=== PATIENT | male | born 1950 | race Caucasian/White ===

== ENCOUNTER 2017-01-22 11:09 | Outpatient (CLI) | payer OTHER ==
[2015-04-29 17:24] VITALS: O2SAT 95
== END 2017-01-22 11:10 | disposition home or self-care (01) | DRG 554 ==
LOC: CONVCARE 11:09
PROVIDERS: ATTEND Orthopaedic Surgery
DX: M17.11 Unilateral primary osteoarthritis, right knee (principal)
CPT/HCPCS: 73560

== ENCOUNTER 2017-02-06 13:03 | Day surgery (SDC) | payer MEDICARE, OTHER ==
[2017-02-06] MEDS ORDERED: TRIAMCINOLONE ACETONIDE 40 MG/ML SUS ONE (13:53)
[2017-02-06 14:21] VITALS: BP 110/73; PULSE 92; RESP 18; TEMP 97.3; O2SAT 94
== END 2017-02-06 14:42 | disposition home or self-care (01) | DRG 552 ==
LOC: SURG 13:03
PROVIDERS: ATTEND Nurse Anesthetist, Certified Registered
DX: M54.5 Low back pain (principal); M99.83 Other biomechanical lesions of lumbar region
CPT/HCPCS: J3300

== ENCOUNTER 2017-05-27 14:29 | Emergency (ER) | payer OTHER ==
[2017-05-27 14:58] VITALS: RESP 20; TEMP 97.9
[2017-05-27 15:00] LABS: BASOPHILS % (AUTO) 1 % (0-3); EOSINOPHILS % (AUTO) 2 % (0-9); HEMATOCRIT 38 % (39-53); MEAN CORPUSCULAR HGB CONC 34.6 gm/dl (32.0-36.0); MEAN CORPUSCULAR VOLUME 90 fL (80-100); MONOCYTES % (AUTO) 6.7 % (0-12); NEUTROPHILS % (AUTO) 62.5 % (37-80)
[2017-05-27 15:25] LABS: APPEARANCE,URINE Slightly Cloudy; BILIRUBIN,URINE NEGATIVE (NEGATIVE); COLOR,URINE Yellow; GLUCOSE, URINE (UA) TRACE (NEGATIVE); KETONES,URINE NEGATIVE (NEGATIVE); LEUKOCYTE ESTERASE ,URINE NEGATIVE (NEGATIVE); NITRATE,URINE NEGATIVE (NEGATIVE); OCCULT BLOOD,URINE NEGATIVE (NEG-TRACE); PH,URINE 6.5; UROBILINOGEN,URINE 0.2 (0.2-1.0 EU)
[2017-05-27 15:28] LABS: ALBUMIN 3.4 gm/dl (3.4-5.0); CALCIUM 8.5 mg/dl (8.5-10.1); POTASSIUM 4.1 mMol/L (3.5-5.1)
[2017-05-27 15:37] LABS: RBC,URINE 0-1 (0-3AV/HPF); WBC,URINE 0-1 (0-5AV/HPF)
[2017-05-27 15:53] VITALS: O2SAT 93
[2017-05-27 15:55] VITALS: BP 121/66; PULSE 94
== END 2017-05-27 15:50 | disposition home or self-care (01) | DRG 948 ==
LOC: ED 14:29
DX: R53.83 Other fatigue (principal); Z75.8 Other problems related to medical facilities and other health care
CPT/HCPCS: 36415; 80053; 81001; 85025; 99282; 99283

== ENCOUNTER 2017-07-09 09:45 | Day surgery (SDC) | payer OTHER ==
[2017-07-09] MEDS ORDERED: METOCLOPRAMIDE HYDROCHLORIDE 5 MG/ML SOL ONE (11:19)
[2017-07-09] MEDS ORDERED: ONDANSETRON HCL 4 MG/2 ML SOL ONE (11:25)
[2017-07-09] MEDS ORDERED: FENTANYL 100MCG/2ML SOL ONE ×2 (11:25→12:28)
[2017-07-09] MEDS ORDERED: PROPOFOL 10 MG/ML EMU IV ONE ×2 (11:25→12:08)
[2017-07-09] MEDS ORDERED: CEFAZOLIN SODIUM 1 GM PDS ONE (11:33)
[2017-07-09] MEDS ORDERED: SUCCINYLCHOLINE CHLORIDE 20 MG/ML SOL IV ONE (11:33)
[2017-07-09] MEDS ORDERED: MIDAZOLAM 2 MG/2 ML SOL ONE (11:33)
[2017-07-09] MEDS ORDERED: KETOROLAC TROMETHAMINE 30 MG/ML SOL ONE (13:11)
[2017-07-09 13:50] VITALS: TEMP 97.6
[2017-07-09 14:02] VITALS: O2SAT 92
[2017-07-09 14:42] VITALS: BP 116/71; PULSE 102; RESP 20
== END 2017-07-09 15:10 | disposition home or self-care (01) | DRG 563 ==
LOC: SURG 09:45
PROVIDERS: ATTEND Orthopaedic Surgery
DX: S83.241A Other tear of medial meniscus, current injury, right knee, initial encounter (principal); M94.261 Chondromalacia, right knee; S83.281A Other tear of lateral meniscus, current injury, right knee, initial encounter
CPT/HCPCS: 29880; G0289; J0330; J0690; J1885; J2250; J2405; J2765; J3010; J2001; J2704

== ENCOUNTER 2017-10-26 17:32 | Emergency (ER) | payer OTHER ==
[2017-10-26 17:55] VITALS: PULSE 94; RESP 16; TEMP 97.6
[2017-10-26 18:53] VITALS: BP 136/88; O2SAT 92
== END 2017-10-26 18:33 | disposition home or self-care (01) | DRG 151 ==
LOC: ED 17:32
DX: R04.0 Epistaxis (principal)
CPT/HCPCS: 99282

== ENCOUNTER 2018-05-29 17:48 | Emergency (ER) | payer OTHER ==
[2018-05-29 18:40] VITALS: TEMP 98.1
[2018-05-29 18:40] LABS: BASOPHILS % (AUTO) 0 % (0-3); EOSINOPHILS % (AUTO) 1 % (0-9); HEMATOCRIT 40 % (39-53); LYMPHOCYTES % (AUTO) 13.5 % (10-50); MEAN CORPUSCULAR HEMOGLOBIN 30.4 pg (27.0-32.0); MEAN CORPUSCULAR HGB CONC 32.4 gm/dl (32.0-36.0); MEAN CORPUSCULAR VOLUME 94 fL (80-100); MONOCYTES % (AUTO) 6.5 % (0-12)
[2018-05-29 18:41] LABS: LACTIC ACID 1.1 mMol/L (0.0-2.0)
[2018-05-29 18:56] LABS: ALBUMIN 3.6 gm/dl (3.4-5.0); ALKALINE PHOSPHATASE 63 IU/L (46-116); ALT 23 IU/L (14-63); AST 13 IU/L (15-37); BILIRUBIN,TOTAL 0.5 mg/dl (0.2-1.0); BLOOD UREA NITROGEN 17 mg/dl (7-18); CALCIUM 8.7 mg/dl (8.5-10.1); CARBON DIOXIDE 26.5 mEq/L (21-32); CHLORIDE 104 mMol/L (98-107); CREATININE 1.06 mg/dl (0.80-1.30); GLUCOSE 118 mg/dl (74-106); POTASSIUM 3.5 mMol/L (3.5-5.1); SODIUM 141 mMol/L (136-145); TOTAL PROTEIN 6.6 gm/dl (6.4-8.2); TROP I < 0.017 ng/ml (0.000-0.056)
[2018-05-29] MEDS ORDERED: POLYETHYLENE GLYCOL 17 GM/1 TBS PDS PO ONE (20:02)
[2018-05-29] MEDS ORDERED: POLYETHYLENE GLYCOL 17 GM/1 TBS PDS ONE (20:04)
[2018-05-29 21:00] VITALS: BP 144/98; PULSE 73; RESP 13; O2SAT 96
== END 2018-05-29 20:35 | disposition home or self-care (01) | DRG 392 ==
LOC: SUPCPDRO 17:48 → ED 17:48
DX: K59.00 Constipation, unspecified (principal)
CPT/HCPCS: 36415; 71045; 74018; 80053; 84484; 85025; 93005; 99283; 99285; A9270-GY

== ENCOUNTER 2018-07-27 12:39 | Emergency (ER) | payer MEDICARE, OTHER ==
[2018-07-27 13:19] VITALS: TEMP 97.9
[2018-07-27] MEDS ORDERED: SODIUM CHLORIDE 0.9% 1000ML 1,000 ML IV SCH (13:45)
[2018-07-27 13:52] LABS: BASOPHILS % (AUTO) 1 % (0-3); EOSINOPHILS % (AUTO) 2 % (0-9); HEMATOCRIT 38 % (39-53); HEMOGLOBIN 12.9 gm/dl (13.5-17.7); LYMPHOCYTES % (AUTO) 20.6 % (10-50); MEAN CORPUSCULAR HEMOGLOBIN 30.8 pg (27.0-32.0); MEAN CORPUSCULAR HGB CONC 33.4 gm/dl (32.0-36.0); MEAN CORPUSCULAR VOLUME 92 fL (80-100); MONOCYTES % (AUTO) 6.5 % (0-12); NEUTROPHILS % (AUTO) 70.3 % (37-80)
[2018-07-27 14:05] LABS: INR 0.96 (0.86-1.12)
[2018-07-27 14:19] LABS: ALBUMIN 3.1 gm/dl (3.4-5.0); ALKALINE PHOSPHATASE 76 IU/L (46-116); ALT 18 IU/L (14-63); AST 11 IU/L (15-37); BILIRUBIN,TOTAL 0.4 mg/dl (0.2-1.0); BLOOD UREA NITROGEN 15 mg/dl (7-18); CALCIUM 7.9 mg/dl (8.5-10.1); CARBON DIOXIDE 30.2 mEq/L (21-32); CHLORIDE 102 mMol/L (98-107); CREATINE KINASE 51 U/L (39-308); GLUCOSE 109 mg/dl (74-106); POTASSIUM 3.5 mMol/L (3.5-5.1); SODIUM 142 mMol/L (136-145); THYROID STIMULATING HORMONE 1.933 uIU/ml (0.358-3.740); TOTAL PROTEIN 6.2 gm/dl (6.4-8.2); TROP I < 0.017 ng/ml (0.000-0.056)
[2018-07-27] MEDS ORDERED: ACETAMINOPHEN 500 MG 500 MG TAB PO ONE (15:35)
[2018-07-27] MEDS ORDERED: ACETAMINOPHEN 500 MG 500 MG TAB ONE (15:37)
[2018-07-27 16:20] LABS: APPEARANCE,URINE Clear; BILIRUBIN,URINE NEGATIVE (NEGATIVE); COLOR,URINE Yellow; GLUCOSE, URINE (UA) NEGATIVE (NEGATIVE); KETONES,URINE NEGATIVE (NEGATIVE); LEUKOCYTE ESTERASE ,URINE NEGATIVE (NEGATIVE); NITRATE,URINE NEGATIVE (NEGATIVE); OCCULT BLOOD,URINE NEGATIVE (NEG-TRACE)
[2018-07-27 16:21] VITALS: RESP 20
[2018-07-27 16:52] LABS: RBC,URINE 0-1 (0-3AV/HPF)
[2018-07-27 16:53] LABS: BACTERIA TRACE (< 1+); CRYSTALS NEGATIVE (0-3 AVE/HPF); EPITHELIAL CELLS 0-2 (SQUAMOUS)
[2018-07-27 17:26] VITALS: BP 162/70; PULSE 82; O2SAT 96
== END 2018-07-27 17:20 | disposition home or self-care (01) | DRG 149 ==
LOC: ED 12:39
DX: R42 Dizziness and giddiness (principal); S30.0XXA Contusion of lower back and pelvis, initial encounter; W19.XXXA Unspecified fall, initial encounter; I10 Essential (primary) hypertension; Z98.890 Other specified postprocedural states
CPT/HCPCS: 70450; 71046; 72220; 80053; 81001; 82550; 84443; 84484; 85025; 85610; 93005; 96365; 96366; 99284; 99285

== ENCOUNTER 2018-10-01 20:42 | Emergency (ER) | payer OTHER ==
[2018-10-01 20:57] VITALS: RESP 20; TEMP 96.2
[2018-10-01 21:30] LABS: BASOPHILS % (AUTO) 1 % (0-3); EOSINOPHILS % (AUTO) 1 % (0-9); HEMATOCRIT 33 % (39-53); HEMOGLOBIN 11.1 gm/dl (13.5-17.7); LYMPHOCYTES % (AUTO) 14.7 % (10-50); MEAN CORPUSCULAR HEMOGLOBIN 29.9 pg (27.0-32.0); MEAN CORPUSCULAR HGB CONC 33.2 gm/dl (32.0-36.0); MEAN CORPUSCULAR VOLUME 90 fL (80-100); MONOCYTES % (AUTO) 8.6 % (0-12); NEUTROPHILS % (AUTO) 75.6 % (37-80)
[2018-10-01 21:39] LABS: CALCIUM 8.1 mg/dl (8.5-10.1); CARBON DIOXIDE 27.4 mEq/L (21-32); CREATININE 1.36 mg/dl (0.80-1.30); POTASSIUM 3.2 mMol/L (3.5-5.1)
[2018-10-01] MEDS ORDERED: BACITRACIN 500 U/GM OIN TOP ONE ×2 (22:27→22:28)
[2018-10-01] MEDS ORDERED: TDAP VACCINE 0.5 ML SUS IM ONE ×2 (22:42→22:43)
[2018-10-01 23:15] VITALS: BP 123/68; PULSE 83; O2SAT 92
== END 2018-10-01 22:55 | disposition home or self-care (01) | DRG 563 ==
LOC: ED 20:42
DX: S93.402A Sprain of unspecified ligament of left ankle, initial encounter (principal); W18.2XXA Fall in (into) shower or empty bathtub, initial encounter; E11.9 Type 2 diabetes mellitus without complications; R40.2362 Coma scale, best motor response, obeys commands, at arrival to emergency department; R40.2142 Coma scale, eyes open, spontaneous, at arrival to emergency department; R40.2252 Coma scale, best verbal response, oriented, at arrival to emergency department
CPT/HCPCS: 36415; 70450; 70486; 72125; 73600; 73620; 80048; 85025; 90471; 90715; 93005; 99283; 99284; G0390; A9270-GY

== ENCOUNTER 2018-10-11 13:05 | Inpatient (IN) | payer OTHER ==
[2018-10-11 13:39] LABS: BASOPHILS % (AUTO) 0 % (0-3); EOSINOPHILS % (AUTO) 0 % (0-9); HEMATOCRIT 31 % (39-53); HEMOGLOBIN 10.3 gm/dl (13.5-17.7); LYMPHOCYTES % (AUTO) 14.7 % (10-50); MEAN CORPUSCULAR HEMOGLOBIN 30.5 pg (27.0-32.0); MEAN CORPUSCULAR HGB CONC 33.6 gm/dl (32.0-36.0); MEAN CORPUSCULAR VOLUME 91 fL (80-100); MONOCYTES % (AUTO) 8.4 % (0-12); NEUTROPHILS % (AUTO) 76.3 % (37-80)
[2018-10-11 13:52] LABS: BILIRUBIN,TOTAL 0.6 mg/dl (0.2-1.0); CALCIUM 7.6 mg/dl (8.5-10.1); CARBON DIOXIDE 31.3 mEq/L (21-32); CREATININE 1.64 mg/dl (0.80-1.30)
[2018-10-11] MEDS ORDERED: ACETAMINOPHEN 325 MG ONE (13:53)
[2018-10-11] MEDS: ACETAMINOPHEN 325 MG PO ONE (13:57)
[2018-10-11 13:59] LABS: POTASSIUM 2.8 mMol/L (3.5-5.1)
[2018-10-11] MEDS ORDERED: POTASSIUM CHLORIDE 10 MEQ TER PO ONE (14:00)
[2018-10-11] MEDS ORDERED: POTASSIUM CHLORIDE 10 MEQ TER ONE (14:07)
[2018-10-11] MEDS ORDERED: SODIUM CHLORIDE 0.9% 1000ML 1,000 ML IV ONE (14:17)
[2018-10-11] MEDS: SODIUM CHLORIDE 0.9% FLUSH 10 ML SOL IV SCH (16:00)
[2018-10-11] MEDS ORDERED: LIDOCAINE HCL 1% MPF 30 SOL ONE (17:23)
[2018-10-11] MEDS ORDERED: POTASSIUM CHLORIDE 2 MEQ/ML SOL IV ONE (17:30)
[2018-10-11 19:38] VITALS: RESP 18; O2SAT 93
[2018-10-11] MEDS ORDERED: SIMVASTATIN 20 MG TAB PO SCH (21:00)
[2018-10-11] MEDS ORDERED: FLUDROCORTISONE ACETATE 0.1 MG TAB PO SCH (21:00)
[2018-10-11] MEDS: GABAPENTIN 100 MG CAP PO SCH (21:07)
[2018-10-11] MEDS: QUETIAPINE FUMARATE 400 MG TAB PO SCH (22:08)
[2018-10-11] MEDS: HALOPERIDOL 10 MG TAB PO SCH (22:11)
[2018-10-11] MEDS: ZIPRASIDONE HCL 80 MG PO SCH (22:12)
[2018-10-11 22:20] LABS: CALCIUM 7.5 mg/dl (8.5-10.1); CARBON DIOXIDE 30.5 mEq/L (21-32); CREATININE 1.23 mg/dl (0.80-1.30); POTASSIUM 3.3 mMol/L (3.5-5.1)
[2018-10-12] MEDS: SODIUM CHLORIDE 0.9% 1000ML 1,000 ML IV SCH ×2 (00:33→09:03)
[2018-10-12] MEDS: SODIUM CHLORIDE 0.9% FLUSH 10 ML SOL IV SCH ×2 (07:02→07:30)
[2018-10-12 07:43] LABS: BASOPHILS % (AUTO) 1 % (0-3); EOSINOPHILS % (AUTO) 1 % (0-9); HEMATOCRIT 30 % (39-53); HEMOGLOBIN 10.2 gm/dl (13.5-17.7); LYMPHOCYTES % (AUTO) 16.3 % (10-50); MEAN CORPUSCULAR HEMOGLOBIN 30.8 pg (27.0-32.0); MEAN CORPUSCULAR HGB CONC 33.6 gm/dl (32.0-36.0); MEAN CORPUSCULAR VOLUME 92 fL (80-100); MONOCYTES % (AUTO) 8.2 % (0-12); NEUTROPHILS % (AUTO) 73.7 % (37-80)
[2018-10-12 07:54] LABS: CALCIUM 7.7 mg/dl (8.5-10.1); CARBON DIOXIDE 27.4 mEq/L (21-32); POTASSIUM 3.2 mMol/L (3.5-5.1)
[2018-10-12 07:57] VITALS: BP 160/88; PULSE 99; TEMP 97.8
[2018-10-12] MEDS ORDERED: METFORMIN HYDROCHLORIDE 500 MG TAB PO SCH (09:00)
[2018-10-12] MEDS ORDERED: ASPIRIN 81 MG CHEWABLE CTB PO SCH (09:00)
[2018-10-12] MEDS ORDERED: MULTIVITAMIN2 1 EA TAB PO SCH (09:00)
[2018-10-12] MEDS ORDERED: OMEPRAZOLE 20 MG CAPSULE PO SCH (09:00)
[2018-10-12] MEDS: ZIPRASIDONE HCL 80 MG PO SCH (09:03)
[2018-10-12] MEDS: HALOPERIDOL 10 MG TAB PO SCH (09:03)
[2018-10-12 09:10] LABS: APPEARANCE,URINE Slightly Cloudy; BILIRUBIN,URINE NEGATIVE (NEGATIVE); COLOR,URINE Yellow; GLUCOSE, URINE (UA) NEGATIVE (NEGATIVE); KETONES,URINE NEGATIVE (NEGATIVE); LEUKOCYTE ESTERASE ,URINE NEGATIVE (NEGATIVE); NITRATE,URINE NEGATIVE (NEGATIVE); OCCULT BLOOD,URINE NEGATIVE (NEG-TRACE); PH,URINE 6.5; UROBILINOGEN,URINE 0.2 (0.2-1.0 EU)
[2018-10-12] MEDS ORDERED: QUETIAPINE FUMARATE 25 MG TAB ONE (09:10)
[2018-10-12] MEDS: QUETIAPINE FUMARATE 400 MG TAB PO SCH (09:13)
[2018-10-12] MEDS: GABAPENTIN 100 MG CAP PO SCH (09:16)
[2018-10-12 09:29] LABS: BACTERIA NEGATIVE (< 1+); CRYSTALS NEGATIVE (0-3 AVE/HPF); EPITHELIAL CELLS 0-3 (SQUAMOUS); RBC,URINE NEG (0-3AV/HPF); WBC,URINE 0-1 (0-5AV/HPF)
[2018-10-12] MEDS: ACETAMINOPHEN 325 MG PO ONE (11:10)
[2018-10-12] MEDS ORDERED: FINASTERIDE 5 MG PO SCH (18:00)
[2018-10-12] MEDS ORDERED: PAROXETINE HYDROCHLORIDE 20 MG TAB PO SCH (18:00)
== END 2018-10-12 11:50 | disposition home or self-care (01) | DRG 641 ==
LOC: ED 13:09 → ACUTE CARE 15:36 → UNDOADMIN 15:36 → ACUTE CARE 15:45
PROVIDERS: ADMIT Family Medicine; ATTEND Family Medicine
DX: S93.402A Sprain of unspecified ligament of left ankle, initial encounter (principal); E87.6 Hypokalemia; E86.0 Dehydration; N17.9 Acute kidney failure, unspecified; E11.9 Type 2 diabetes mellitus without complications; F79 Unspecified intellectual disabilities; S09.90XA Unspecified injury of head, initial encounter; R40.2362 Coma scale, best motor response, obeys commands, at arrival to emergency department; R40.2142 Coma scale, eyes open, spontaneous, at arrival to emergency department; R40.2252 Coma scale, best verbal response, oriented, at arrival to emergency department; W19.XXXA Unspecified fall, initial encounter; E78.6 Lipoprotein deficiency; I95.9 Hypotension, unspecified; F20.9 Schizophrenia, unspecified
CPT/HCPCS: 36415; 73562; 73610; 80048; 80053; 81001; 85025; 99238; 99284; J3480; A9270-GY; J2001

== ENCOUNTER 2018-10-14 22:20 | Inpatient (IN) | payer OTHER ==
[2018-10-14 23:04] LABS: BASOPHILS % (AUTO) 1 % (0-3); EOSINOPHILS % (AUTO) 1 % (0-9); HEMATOCRIT 28 % (39-53); HEMOGLOBIN 9.3 gm/dl (13.5-17.7); LYMPHOCYTES % (AUTO) 10.2 % (10-50); MEAN CORPUSCULAR HEMOGLOBIN 30.2 pg (27.0-32.0); MEAN CORPUSCULAR HGB CONC 33.1 gm/dl (32.0-36.0); MEAN CORPUSCULAR VOLUME 91 fL (80-100); NEUTROPHILS % (AUTO) 83.7 % (37-80)
[2018-10-14 23:11] LABS: CALCIUM 7.6 mg/dl (8.5-10.1); CARBON DIOXIDE 29.9 mEq/L (21-32); CREATININE 0.85 mg/dl (0.80-1.30); POTASSIUM 3.1 mMol/L (3.5-5.1)
[2018-10-14 23:31] LABS: APPEARANCE,URINE Clear; BILIRUBIN,URINE NEGATIVE (NEGATIVE); COLOR,URINE Yellow; GLUCOSE, URINE (UA) NEGATIVE (NEGATIVE); KETONES,URINE NEGATIVE (NEGATIVE); LEUKOCYTE ESTERASE ,URINE NEGATIVE (NEGATIVE); NITRATE,URINE NEGATIVE (NEGATIVE); OCCULT BLOOD,URINE NEGATIVE (NEG-TRACE)
[2018-10-14 23:38] LABS: BACTERIA 1+ (< 1+); CRYSTALS NEGATIVE (0-3 AVE/HPF); RBC,URINE 0-2 (0-3AV/HPF)
[2018-10-15] MEDS: POTASSIUM CHLORIDE 10 MEQ TER PO SCH ×3 (00:23→06:44)
[2018-10-15] MEDS: GABAPENTIN 100 MG CAP PO SCH ×2 (08:32→20:00)
[2018-10-15] MEDS: ASPIRIN 81 MG CHEWABLE CTB PO SCH (08:32)
[2018-10-15] MEDS: ACETAMINOPHEN 500 MG 500 MG TAB PO SCH ×3 (08:34→20:00)
[2018-10-15] MEDS ORDERED: OMEPRAZOLE 20 MG CAPSULE PO SCH (09:00)
[2018-10-15] MEDS ORDERED: ZIPRASIDONE HCL 80 MG PO SCH (09:00)
[2018-10-15] MEDS ORDERED: ZIPRASIDONE PO SCH (09:00)
[2018-10-15 09:06] LABS: CALCIUM 7.7 mg/dl (8.5-10.1); CARBON DIOXIDE 28.7 mEq/L (21-32); CREATININE 0.82 mg/dl (0.80-1.30); POTASSIUM 3.9 mMol/L (3.5-5.1)
[2018-10-15] MEDS: ZIPRASIDONE 20 MG PO SCH ×2 (10:17→17:17)
[2018-10-15] MEDS: ZIPRASIDONE 80 MG PO SCH ×2 (10:18→17:18)
[2018-10-15] MEDS: HALOPERIDOL 10 MG TAB PO SCH ×3 (10:18→20:00)
[2018-10-15] MEDS: PANTOPRAZOLE SODIUM 40 MG ECT PO SCH (10:19)
[2018-10-15] MEDS ORDERED: CLONAZEPAM 0.5 MG TAB PO PRN (17:42)
[2018-10-15] MEDS ORDERED: FINASTERIDE 5 MG TAB PO SCH (18:00)
[2018-10-15] MEDS ORDERED: PAROXETINE HYDROCHLORIDE 20 MG TAB PO SCH (18:00)
[2018-10-15] MEDS ORDERED: SIMVASTATIN 20 MG TAB PO SCH (18:00)
[2018-10-15 20:04] VITALS: RESP 20
[2018-10-15] MEDS ORDERED: FLUDROCORTISONE ACETATE 0.1 MG TAB PO SCH (21:00)
[2018-10-16 07:15] LABS: BASOPHILS % (AUTO) 1 % (0-3); EOSINOPHILS % (AUTO) 0 % (0-9); HEMATOCRIT 30 % (39-53); LYMPHOCYTES % (AUTO) 7.4 % (10-50); MEAN CORPUSCULAR HEMOGLOBIN 30.5 pg (27.0-32.0); MEAN CORPUSCULAR VOLUME 92 fL (80-100); MONOCYTES % (AUTO) 4.2 % (0-12); NEUTROPHILS % (AUTO) 87.4 % (37-80)
[2018-10-16 07:33] LABS: CALCIUM 8.1 mg/dl (8.5-10.1); CARBON DIOXIDE 28.7 mEq/L (21-32); CREATININE 0.75 mg/dl (0.80-1.30); POTASSIUM 3.7 mMol/L (3.5-5.1)
[2018-10-16 07:43] VITALS: O2SAT 95
[2018-10-16] MEDS: ASPIRIN 81 MG CHEWABLE CTB PO SCH (08:56)
[2018-10-16] MEDS: GABAPENTIN 100 MG CAP PO SCH (08:56)
[2018-10-16] MEDS: ACETAMINOPHEN 500 MG 500 MG TAB PO SCH ×2 (08:57→13:59)
[2018-10-16] MEDS: ZIPRASIDONE 80 MG PO SCH (08:58)
[2018-10-16] MEDS: ZIPRASIDONE 20 MG PO SCH (08:59)
[2018-10-16] MEDS: HALOPERIDOL 10 MG TAB PO SCH ×2 (08:59→14:00)
[2018-10-16] MEDS: PANTOPRAZOLE SODIUM 40 MG ECT PO SCH (08:59)
[2018-10-16 11:12] LABS: ALKALINE PHOSPHATASE 102 IU/L (46-116); ALT 37 IU/L (14-63); AST 21 IU/L (15-37); BILIRUBIN,DIRECT 0.2 mg/dl (0.0-0.2); BILIRUBIN,TOTAL 0.9 mg/dl (0.2-1.0); SALICYLATE < 2.8 mg/dl (2.8-30.0)
[2018-10-16 11:17] LABS: ALCOHOL 0.005 gm/dl (0.000-0.08)
[2018-10-16 12:16] LABS: APPEARANCE,URINE Clear; BILIRUBIN,URINE NEGATIVE (NEGATIVE); COLOR,URINE Dark yellow; GLUCOSE, URINE (UA) NEGATIVE (NEGATIVE); KETONES,URINE NEGATIVE (NEGATIVE); LEUKOCYTE ESTERASE ,URINE NEGATIVE (NEGATIVE); NITRATE,URINE NEGATIVE (NEGATIVE); OCCULT BLOOD,URINE NEGATIVE (NEG-TRACE)
[2018-10-16 12:25] LABS: BACTERIA 1+ (< 1+); CRYSTALS NEGATIVE (0-3 AVE/HPF); EPITHELIAL CELLS 103 (SQUAMOUS); RBC,URINE 0-2 (0-3AV/HPF)
[2018-10-16 12:26] LABS: AMPHETAMINES NEGATIVE (NEGATIVE); BARBITUATES NEGATIVE (NEGATIVE); BENZODIAZEPINES NEGATIVE (NEGATIVE); CANNABINOL(THC) NEGATIVE (NEGATIVE); COCAINE(COC) NEGATIVE (NEGATIVE); METHADONE NEGATIVE (NEGATIVE); METHAMPHETAMINES NEGATIVE (NEGATIVE); OPIATES(OPI) NEGATIVE (NEGATIVE); OXYCODONE(OXY) NEGATIVE (NEGATIVE); PROPOXYPHENE(PPX) NEGATIVE (NEGATIVE); TRICYCLIC ANTIDEPRESSANTS POSITIVE (NEGATIVE)
[2018-10-16 16:21] VITALS: BP 148/91; PULSE 82; TEMP 97.3
== END 2018-10-16 16:05 | disposition home health service (06) | DRG 641 ==
LOC: ED 22:20 → ACUTE CARE 23:28
PROVIDERS: ADMIT Family Medicine; ATTEND Family Medicine
PROC: F01ZCZZ Transfer Assessment (ICD-10-PCS; principal; 2018-10-15)
PROC: F01ZDFZ Gait and/or Balance Assessment using Assistive, Adaptive, Supportive or Protective Equipment (ICD-10-PCS; 2018-10-15)
DX: E87.6 Hypokalemia (principal); N17.9 Acute kidney failure, unspecified; F20.89 Other schizophrenia; Z91.81 History of falling; W19.XXXA Unspecified fall, initial encounter; E11.9 Type 2 diabetes mellitus without complications; R25.1 Tremor, unspecified
CPT/HCPCS: 36415; 80048; 80076; 80305; 80307; 81001; 85025; 99222; 99282; A9270-GY

== ENCOUNTER 2018-11-24 17:40 | Inpatient (IN) | payer OTHER ==
[2018-11-24 18:32] LABS: BASOPHILS % (AUTO) 0 % (0-3); EOSINOPHILS % (AUTO) 0 % (0-9); HEMATOCRIT 36 % (39-53); HEMOGLOBIN 12.1 gm/dl (13.5-17.7); MEAN CORPUSCULAR HEMOGLOBIN 29.1 pg (27.0-32.0); MEAN CORPUSCULAR HGB CONC 33.8 gm/dl (32.0-36.0); MEAN CORPUSCULAR VOLUME 86 fL (80-100); MONOCYTES % (AUTO) 3.2 % (0-12); NEUTROPHILS % (AUTO) 92.4 % (37-80)
[2018-11-24 18:49] LABS: CALCIUM 8.1 mg/dl (8.5-10.1); CARBON DIOXIDE 29.9 mEq/L (21-32); CREATININE 0.81 mg/dl (0.80-1.30); POTASSIUM 3.3 mMol/L (3.5-5.1); TOTAL PROTEIN 6.3 gm/dl (6.4-8.2); TROP I 0.13 ng/ml (0.000-0.056)
[2018-11-24 20:46] LABS: APPEARANCE,URINE Clear; BILIRUBIN,URINE 1+ (NEGATIVE); COLOR,URINE Yellow; GLUCOSE, URINE (UA) NEGATIVE (NEGATIVE); KETONES,URINE 3+ (NEGATIVE); LEUKOCYTE ESTERASE ,URINE NEGATIVE (NEGATIVE); NITRATE,URINE NEGATIVE (NEGATIVE); OCCULT BLOOD,URINE TRACE LYSED (NEG-TRACE)
[2018-11-24 20:58] LABS: BACTERIA 1+ (< 1+); CRYSTALS NEGATIVE (0-3 AVE/HPF); EPITHELIAL CELLS 0-2 (SQUAMOUS); ICTOTEST,URINE NEGATIVE (NEGATIVE)
[2018-11-24] MEDS ORDERED: SODIUM CHLORIDE 0.9% 1000ML 1,000 ML IV SCH (22:00)
[2018-11-24] MEDS ORDERED: DIVALPROEX 250 MG TAB.ER.24H PO ONE (22:13)
[2018-11-24] MEDS: POTASSIUM CHLORIDE 10 MEQ TER PO SCH (22:34)
[2018-11-24] MEDS: GABAPENTIN 100 MG CAP PO SCH (22:34)
[2018-11-24] MEDS: CLONIDINE 0.1 MG TAB PO SCH (22:35)
[2018-11-24] MEDS: ACETAMINOPHEN 500 MG 500 MG TAB PO SCH (22:35)
[2018-11-24] MEDS: DIVALPROEX 250 MG TCP PO SCH (22:36)
[2018-11-25] MEDS: POTASSIUM CHLORIDE 10 MEQ TER PO SCH ×3 (01:28→20:34)
[2018-11-25] MEDS: CLONAZEPAM 0.5 MG TAB PO PRN ×2 (04:23→12:37)
[2018-11-25 07:37] LABS: POTASSIUM 3.4 mMol/L (3.5-5.1); TROP I 0.111 ng/ml (0.000-0.056)
[2018-11-25] MEDS ORDERED: FINASTERIDE 5 MG PO SCH (09:00)
[2018-11-25] MEDS: ASPIRIN 81 MG CHEWABLE CTB PO SCH (09:43)
[2018-11-25] MEDS: CLONIDINE 0.1 MG TAB PO SCH ×2 (09:46→20:31)
[2018-11-25] MEDS: DIVALPROEX 250 MG TCP PO SCH ×3 (09:47→20:30)
[2018-11-25] MEDS: GABAPENTIN 100 MG CAP PO SCH ×2 (09:48→20:27)
[2018-11-25] MEDS: PAROXETINE HYDROCHLORIDE 20 MG TAB PO SCH (09:48)
[2018-11-25] MEDS: ACETAMINOPHEN 500 MG 500 MG TAB PO SCH ×3 (09:50→20:25)
[2018-11-25] MEDS: ENOXAPARIN SODIUM 120 MG/0.8 ML SYRINGE SQ SCH (10:04)
[2018-11-25] MEDS: ZIPRASIDONE HCL 40 MG PO SCH ×2 (11:14→20:27)
[2018-11-25] MEDS: FINASTERIDE 5 MG TAB PO SCH (11:15)
[2018-11-26] MEDS: CLONAZEPAM 0.5 MG TAB PO PRN (03:32)
[2018-11-26 07:15] LABS: CALCIUM 8.2 mg/dl (8.5-10.1); CARBON DIOXIDE 29.2 mEq/L (21-32); CREATININE 0.71 mg/dl (0.80-1.30); POTASSIUM 3.5 mMol/L (3.5-5.1)
[2018-11-26 07:16] LABS: BASOPHILS % (AUTO) 1 % (0-3); EOSINOPHILS % (AUTO) 0 % (0-9); HEMATOCRIT 35 % (39-53); HEMOGLOBIN 11.5 gm/dl (13.5-17.7); LYMPHOCYTES % (AUTO) 23.7 % (10-50); MEAN CORPUSCULAR HEMOGLOBIN 29.1 pg (27.0-32.0); MEAN CORPUSCULAR HGB CONC 33.3 gm/dl (32.0-36.0); MEAN CORPUSCULAR VOLUME 87 fL (80-100); MONOCYTES % (AUTO) 8.7 % (0-12); NEUTROPHILS % (AUTO) 66.2 % (37-80)
[2018-11-26] MEDS ORDERED: ACETAMINOPHEN 325 MG PO PRN (08:22)
[2018-11-26] MEDS ORDERED: ENOXAPARIN 100 MG SOL SC ONE (08:41)
[2018-11-26] MEDS: ASPIRIN 81 MG CHEWABLE CTB PO SCH (08:45)
[2018-11-26] MEDS: CLONIDINE 0.1 MG TAB PO SCH ×2 (08:46→20:35)
[2018-11-26] MEDS: GABAPENTIN 100 MG CAP PO SCH ×2 (08:47→20:35)
[2018-11-26] MEDS: DIVALPROEX 250 MG TCP PO SCH ×3 (08:47→20:35)
[2018-11-26] MEDS: PAROXETINE HYDROCHLORIDE 20 MG TAB PO SCH (08:47)
[2018-11-26] MEDS: FINASTERIDE 5 MG TAB PO SCH (08:48)
[2018-11-26] MEDS: ACETAMINOPHEN 500 MG 500 MG TAB PO SCH ×3 (08:48→20:35)
[2018-11-26] MEDS: ENOXAPARIN SODIUM 120 MG/0.8 ML SYRINGE SQ SCH (08:49)
[2018-11-26] MEDS: POTASSIUM CHLORIDE 10 MEQ TER PO SCH ×3 (10:29→20:35)
[2018-11-26] MEDS: ZIPRASIDONE HCL 40 MG PO SCH ×2 (10:30→20:35)
[2018-11-26] MEDS: SODIUM CHLORIDE 0.9% FLUSH 10 ML SOL IV SCH ×3 (11:43→17:39)
[2018-11-26] MEDS: METOPROLOL TARTRATE 25 MG TAB PO SCH (17:17)
[2018-11-27 01:37] VITALS: O2SAT 96
[2018-11-27 07:15] LABS: CALCIUM 8.2 mg/dl (8.5-10.1); CARBON DIOXIDE 29.9 mEq/L (21-32); CREATININE 0.75 mg/dl (0.80-1.30); POTASSIUM 4.4 mMol/L (3.5-5.1)
[2018-11-27 07:46] VITALS: BP 161/90; PULSE 68; RESP 19; TEMP 97.8
[2018-11-27] MEDS: ASPIRIN 81 MG CHEWABLE CTB PO SCH (08:34)
[2018-11-27] MEDS: CLONIDINE 0.1 MG TAB PO SCH (08:36)
[2018-11-27] MEDS: DIVALPROEX 250 MG TCP PO SCH ×2 (08:37→14:47)
[2018-11-27] MEDS: METOPROLOL TARTRATE 25 MG TAB PO SCH (08:40)
[2018-11-27] MEDS: GABAPENTIN 100 MG CAP PO SCH (08:41)
[2018-11-27] MEDS: PAROXETINE HYDROCHLORIDE 20 MG TAB PO SCH (08:42)
[2018-11-27] MEDS: ACETAMINOPHEN 500 MG 500 MG TAB PO SCH ×2 (08:43→14:44)
[2018-11-27] MEDS: FINASTERIDE 5 MG TAB PO SCH (08:43)
[2018-11-27] MEDS: ZIPRASIDONE HCL 40 MG PO SCH (08:44)
[2018-11-27] MEDS ORDERED: ENOXAPARIN 100 MG SOL SC SCH (09:00)
[2018-11-27] MEDS: CLONAZEPAM 0.5 MG TAB PO PRN (14:44)
== END 2018-11-27 15:20 | disposition home health service (06) | DRG 948 ==
LOC: ED 17:40 → ACUTE CARE 21:36
PROVIDERS: ADMIT Family Medicine; ATTEND Family Medicine
DX: R79.89 Other specified abnormal findings of blood chemistry (principal); E87.1 Hypo-osmolality and hyponatremia; F20.89 Other schizophrenia; E87.6 Hypokalemia; E11.9 Type 2 diabetes mellitus without complications; I10 Essential (primary) hypertension; W19.XXXA Unspecified fall, initial encounter; R06.00 Dyspnea, unspecified; Z79.899 Other long term (current) drug therapy
CPT/HCPCS: 36415; 70450; 71045; 80048; 80053; 81001; 83880; 84132; 84484; 85025; 87088; 93005; 93012; 93306; 99222; 99285; J1650; Q9957; A9270-GY

== ENCOUNTER 2018-12-19 10:37 | Emergency (ER) | payer OTHER ==
[2018-12-19 10:37] VITALS: O2SAT 96
[2018-12-19] MEDS ORDERED: HEPARIN SODIUM 5000 U/ML SOL ONE (10:43)
[2018-12-19] MEDS ORDERED: ATROPINE SULFATE 1 MG/ML IV ONE (10:48)
[2018-12-19] MEDS: EPINEPHRINE HCL 0.1 MG/ML SOL IV PRN ×2 (10:49→10:53)
[2018-12-19] MEDS: SODIUM CHLORIDE 0.9% FLUSH 10 ML SOL IV PRN ×2 (10:49→10:53)
[2018-12-19 11:01] LABS: ABG PCO2 117 mmHg (35-45); ABG PH < 6.65 (7.35-7.45)
[2018-12-19] MEDS ORDERED: ATROPINE 0.1 MG/ML SOL ONE (11:03)
[2018-12-19 11:04] LABS: ABG PO2 56 mmHg (80-100)
[2018-12-19] MEDS ORDERED: EPINEPHRINE 1:10,000 PREFILL 0.1 MG/ML SOL ONE (11:04)
[2018-12-19] MEDS ORDERED: CALCIUM CHLORIDE 100 MG/ML SOL IV ONE (11:04)
[2018-12-19 11:32] VITALS: RESP 12
[2018-12-19 11:45] VITALS: PULSE 46
[2018-12-19] MEDS ORDERED: HEPARIN SODIUM 5000 U/ML SOL IV ONE (11:45)
== END 2018-12-19 10:56 | disposition expired | DRG 81 ==
LOC: ED 10:37
DX: R40.20 Unspecified coma (principal); E11.9 Type 2 diabetes mellitus without complications
CPT/HCPCS: 36600; 82803; 93005; 96374; 96375; 99291; J0461; J1644; J3490